=== PATIENT | female | born 1980 | race Caucasian/White ===

== ENCOUNTER 2020-10-17 15:24 | Outpatient (CLI) | payer BC, SELFPAY ==
--- NOTE | ~2020-10-17 | US_ITS ---
EXAMINATION:US venous doppler LE LT INDICATION:Localized swelling of the left lower extremity TECHNIQUE: Multiple grayscale, color flow and Doppler images of the left lower extremity deep venous systems were obtained and reviewed. COMPARISON:No prior studies for comparison. FINDINGS: The common femoral, superficial femoral and popliteal veins demonstrate normal respiratory variation, augmentation and compressibility. Color flow is also seen within the posterior tibial, pe roneal, greater saphenous and profunda veins. IMPRESSION: 1: No lower extremity deep venous thrombosis. Reviewed, dictated and finalized at location B. CUTTER
== END 2020-10-17 15:25 | disposition home or self-care (01) ==
PROVIDERS: PCP Family Medicine; Visit Provider Obstetrics & Gynecology
DX: R22.42 Localized swelling, mass and lump, left lower limb (principal)
CPT/HCPCS: 93971

== ENCOUNTER → 2021-03-28 08:03 | Outpatient (CLI) | payer BC, SELFPAY ==
--- NOTE | ~2021-03-28 | MR_ITS ---
EXAMINATION: MR knee LT wo con DATE: 03/28/2021 09:24 INDICATION: Left knee pain, swelling and tightness with difficulty bending of 6 months duration TECHNIQUE: Magnetic resonance imaging (MRI) of the left knee was performed without intravenous contra st. Sequences included coronal PD-weighted FSE, coronal PD-weighted FS FSE, sagittal T2-weighted FSE , sagittal PD-weighted FS FSE and axial PD weighted fat saturated FSE. COMPARISON: None. FINDINGS: Medial compartment: Full-thickness radial tear/avulsion of the posterior root of the medial meniscus. Mild partial-thickn ess cartilage loss with minimal chondral surface irregularity along the anterior weightbearing medial femoral condyle and anteromedial aspect of the medial tibial plateau. Lateral compartment: Lateral meniscus is normal. Partial-thickness cartilage loss with smooth chondral surface along the l ateral half of the posterior weightbearing lateral femoral condyle. Patellofemoral compartment: Small focus of shallow chondral fissuring at the central aspect of the lateral patellar facet. Trochl ear cartilage is normal. Ligaments and tendons: Anterior and posterior cruciate ligaments are normal. The medial collateral ligament and fibular chase ateral ligament complex are normal. The extensor mechanism is normal. The visualized medial and later al hamstring tendons as well as the iliotibial band are normal. Fluid: Large left knee joint effusion. There is a 5 x 2 mm loose osteochondral body positioned along the inf erolateral margin of the medial trochlea. Osseous/other: There are few small patchy regions of fat saturable red marrow reexpansion at the metaphyseal and met adiaphyseal region of the distal femur. No fracture or pathologic marrow replacing process. IMPRESSION: 1. Full-thickness radial tear/avulsion of the posterior root of the medial meniscus. 2. Mild medial compartment and minimal lateral and patellofemoral compartment osteoarthritis. 3. Large left knee joint effusion. Reviewed, dictated and finalized at location A. IMPRESSION: 1. Full-thickness radial tear/avulsion of the posterior root of the medial meni scus. 2. Mild medial compartment and minimal lateral and patellofemoral compartment o steoarthritis. 3. Large left knee joint effusion.
== END ==
PROVIDERS: Visit Provider Orthopaedic Surgery
DX: M25.462 Effusion, left knee (principal); M17.12 Unilateral primary osteoarthritis, left knee
CPT/HCPCS: 73721

== ENCOUNTER 2024-02-13 08:51 | Outpatient (CLI) | payer BC, SELFPAY ==
--- NOTE | ~2024-02-13 | MM_ITS ---
EXAMINATION: MM screening sophia BI w vika HISTORY: Screening TECHNIQUE: Craniocaudal and mediolateral oblique 3-D tomosynthesis images were obtained and synthetic 2-D images were generated. CAD analysis was submitted and interpreted. COMPARISON: No prior mammogram is available for comparison at this institution. BREAST PARENCHYMAL COMPOSITION: Dense: The breasts are heterogeneously dense, which may obscure small masses FINDINGS: There is no evidence of suspicious mass, calcification, or architectural distortion to sugg est malignancy in either breast. There has been no suspicious interval change. IMPRESSION: 1. No mammographic evidence of malignancy. 2. Recommend routine screening mammography in one year. BI-RADS Category 1: Negative Reviewed, dictated and finalized at location B.
== END 2024-02-13 08:52 | disposition home or self-care (01) ==
PROVIDERS: PCP Family Medicine; Visit Provider Obstetrics & Gynecology
DX: Z12.31 Encounter for screening mammogram for malignant neoplasm of breast (principal)
CPT/HCPCS: 77063; 77067